=== PATIENT | male | born 1935 | race Caucasian/White ===

== ENCOUNTER → 2017-03-29 | Outpatient (CLI) | payer OTHER | LOC: BHLMT 10:30 | PROVIDERS: ATTEND Internal Medicine Interventional Cardiology | DX: I48.2 Chronic atrial fibrillation (principal); I25.10 Atherosclerotic heart disease of native coronary artery without angina pectoris; I10 Essential (primary) hypertension; I38 Endocarditis, valve unspecified; I50.32 Chronic diastolic (congestive) heart failure; R60.9 Edema, unspecified | CPT/HCPCS: 93005-PO ==

== ENCOUNTER → 2017-09-26 | Outpatient (CLI) | payer OTHER | LOC: BHFA 13:30 | PROVIDERS: ATTEND Internal Medicine Interventional Cardiology | DX: R00.1 Bradycardia, unspecified (principal) ==

== ENCOUNTER 2017-12-14 10:46 | Inpatient (IN) | payer OTHER ==
[~2017-12-14 10:46] MED LIST: ACETAMINOPHEN 325 MG TAB PO PRN; ONDANSETRON 4 MG/2 ML VIAL IVP PRN; ONDANSETRON DISINTEGRATING 4 MG TAB PO PRN
[2017-12-14 11:29] LABS: PLATELET COUNT 216 10^3/uL (150-400)
[2017-12-14] MEDS ORDERED: ENOXAPARIN 80 MG/0.8 ML SYR SC SCH (12:45)
[2017-12-14 13:12] LABS: INR 1.2 (0.83-1.16); PROTIME(PATIENT) 15.4 SEC (12.0-15.0)
--- NOTE | 2017-12-14 13:27 | GCON ---
[f rep st] CONSULTATION CARDIOLOGY CONSULTATION DATE OF CONSULTATION: 12/14/2017 HISTORY OF PRESENT ILLNESS: The patient is an 82-year-old man with a history of permanent atrial fib rillation, coronary artery disease, status post bypass surgery and subsequent PCIs, who has also had valvular heart disease with mechanical aortic valve replacement, under the care of Dr. Paramjit Medina. He has acute on chronic diastolic heart failure related to his valvular heart disease and LV diastol ic dysfunction. The patient has developed enlarged lymph nodes in the perihilar region and underwent mediastinoscopy under the care of Dr. Paramjit Medina at [facility]. There was a lymph node of inte rest, which could not be assessed during the procedure. The patient's postoperative course was compl icated by fluid overload in his lower extremities, as well as a blister of his right anterior manning, w hich is subsequently ruptured. Two of his dogs ran into his anterior manning, and that was associated w ith development of a hematoma just above that spot of skin breakdown. During his Lovenox bridge, whi ch was performed around the time of his mediastinoscopy, he developed significant epistaxis, which re quired a Rhino Rocket placement, and he spent over a week in the hospital around that time. Since th e procedure, he has been hoarse and had difficulty with his speech, specifically not in regard to his ability to form or think of words, but because of mechanical problems with his vocal cords. Yesterday, he underwent a bronchoscopy-guided needle biopsy of the lymph node of interest, as well as of the lung, and the family was verbally told that this was most likely a stage IIIA lung cancer. Harris judd also underwent thoracentesis, with removal of 900 cc of edna blood from the left hemithorax, which Dr. Medina felt was related to the mediastinoscopy and subsequent bleeding. Because he was not admi tted to [facility], it was recommended he be admitted here for further evaluation and treatment. PAST MEDICAL HISTORY: Significant for: 1. Asthma. 2. Permanent atrial fibrillation. 3. Coronary artery disease with 3-vessel bypass and subsequent PCI of the circumflex and RCA. 4. Mechanical aortic valve. 5. Acute on chronic diastolic congestive heart failure, [place] heart Association class 4 at this p oint. 6. Diabetes mellitus. 7. Hypertension. 8. Sleep apnea. 9. Previously mentioned valvular heart disease. PAST SURGICAL HISTORY: Significant for coronary artery bypass grafting with RAMSEY to the LAD, vein gr aft to the OM, and saphenous vein graft to the RCA in [place]. He has had subsequent catheterizatio n showing patent RAMSEY and both vein grafts occluded, and therefore, the interventions to the right an d circumflex under the care of Dr. Shaikh. He has a [address] [facility] aortic valve placed in the aort ic position, 07/28/2009, under the care of Dr. Medina. MEDICATIONS: His present medications include aspirin 81 mg daily, Lasix 80 mg daily, Exforge 5/160, PreserVision, super vitamin B daily, vitamin D 1 tablet daily, iron 1000 mg t.i.d., prednisone 5 mg p .o. b.i.d., Zytiga 1000 mg each evening, antacid 20 mg daily, Coumadin 5 mg each afternoon, Tekturna (which has been held) at a dose of 300 mg, Tradjenta 5 mg daily, simvastatin 20 mg daily, tamsulosin 0.4 mg daily, Uloric 40 mg daily. ALLERGIES: He is known to have an allergy to clonidine. SOCIAL HISTORY: The patient does not smoke, abuse alcohol or illicit drugs. He is retired and lives with his . His and son are present at the time of his evaluation in the room. This was a direct admission. PHYSICAL EXAMINATION: GENERAL: He appears acutely and chronically ill. VITAL SIGNS: His blood pre ssure is 109/54, heart rate 66, respirations 16 and unlabored. Oxygen saturation is 90% on room air. NECK: Reveals no JVD. HEART: Reveals normal S1, S2, with crisp mechanical click consistent with a [facility] aortic valve. He does have an irregularly irregular rhythm consistent with atrial fibrill ation. LUNGS: Reveal bilateral expiratory wheeze, worse on the left than the right. There is good air movement in the right and left lungs from the apex all the way to the base bilaterally. ABDOMEN: Benign, with positive bowel sounds. It is nondistended and nontender. EXTREMITIES: Reveal 2 to 3 + pitting edema bilaterally. There is a fresh bandage on the right lower extremity over the anterior aspect of the manning. I was able to look at pictures of the wound from only 2 days ago, revealing red ness, but no evidence of infection at that time. IMPRESSION/PLAN: 1. Acute on chronic diastolic heart failure in a patient with mechanical aortic valve, who has been off his blood thinners over the course of the last 24 hours. I think the patient should be resumed o n Lovenox at 0.8 mg/kg, which will be roughly 80 mg subcutaneously b.i.d. I would like to resume his Coumadin at 5 mg daily. He will need daily PT and INRs and continue his Lovenox unless bleeding com plications in the nose or recurrence of bleeding within the lung develop. The patient is likely some what fluid overloaded following the mediastinoscopy and all of his medical complications following th pari procedures. I would like to initiate a Lasix drip at 10 mg an hour if his chemistries allow for that to occur. He has had a history of recent renal insufficiency that may preclude the use of high- dose Lasix at present. The patient will likely require a catheter to help him deal with fluid shifts related to diuresis. 2. Suspected cancer of the lung, stage IIIA. The tissue report is not back from [facility], but will need to be followed. I am not sure where the patient's ultimate treatment for this problem will commence. He does have a history of remote prostate cancer. 3. Hypertension, well controlled on the present regimen. 4. Diabetes mellitus, to be followed per the hospitalist. I spent approximately an hour with the patient and his family. Over half the time was spent in coord ination of care and understanding the patient's past medical history in detail. I did discuss his ca se in detail with Dr. Alanis of the hospitalist service, and also discussed this case with the [facility] staff as well. We will continue to follow along with the hospitalist service during the patient's hospitalization. Copy requested to: PRIMARY CARE PHYSICIAN /[id number]/MODL
[2017-12-14] MEDS ORDERED: HEPARIN 5,000 UNIT/0.5 ML INJ SC SCH (14:00)
[2017-12-14] MEDS ORDERED: D50W 25 GM/50 ML SYR IVP PRN (14:55)
[2017-12-14] MEDS ORDERED: ENOXAPARIN 100 MG/ML SYR SC SCH (15:00)
[2017-12-14] MEDS: FERROUS SULFATE 325 MG TAB PO SCH ×2 (15:58→20:38)
[2017-12-14] MEDS: LINAGLIPTIN 5 MG PO SCH (17:19)
[2017-12-14] MEDS: Febuxostat [Uloric] 40 MG PO SCH (17:19)
--- NOTE | 2017-12-14 17:40 | WOCRNPDOC ---
ALEX Advanced Assessment Note - Skin Integrity Problem, Advanced Assess Right Lower Leg Dressing Type: Alginate, Kerlix Dressing Description: Intact Exudate Amount: Scant Exudate Color: Reddish/Yellow Exudate Characteristic(s): Dried Integumentary Issue Intervention: Dressing Changed, Hydrogel Applied Laverne Wound Tissue: Swollen (intact hematoma proximally;see note), Hemosiderin Staining, Venous Dermatitis Laverne Wound Swelling: None Wound Bed Color: Red Wound Bed Constitution: De-roofed Sanguineous blister Site Measurement - Head-to-Toe Length X Width X Depth (cm): 6cmx7.2cmx0.1cm Skin Integrity Problem Comment: De-roofed, dried blister noted to anterior RLE. Per patient, he is not certain about how this injury occurred. He said that he noticed it after his previous hospitalization last month, and that initially it was "a blood blister." Since that time the blister has de-roofed, and is now flat w/ no exudate. His home decorator applied an alginate dressing because it was draining. Now the overlying epithelium is beginning to re-attach in places, and there is some partial-thickness tissue loss in the distal aspect of the wound bed. No necrosis or swelling observed. Periwound skin appearance consistent w/ venous insufficiency, but his appears mild as there is very little edema in this extremity. Of note is a 2.5cmx2.5cm hematoma-like bump just proximal to this wound, which patient says was caused by his dogs jumping up on him. He says it has been there for "about a month," and that it isn't painful or tender. The site is mildly fluctuant, with no erythema periwound. I marked around this area w/ a permanent marker to establish where the margins are today. Dr. Alanis present during assessment, and agrees that the site does not appear infected or acute. Will continue to monitor while patient is here.
[2017-12-14] MEDS: predniSONE 5 MG TAB PO SCH (17:44)
[2017-12-14] MEDS: TAMSULOSIN HCL 0.4 MG CAP PO SCH (17:44)
[2017-12-14] MEDS: ATORVASTATIN CALCIUM 10 MG TAB PO SCH (17:44)
[2017-12-14] MEDS: FAMOTIDINE 20 MG TAB PO SCH (17:44)
[2017-12-14] MEDS: WARFARIN SODIUM 5 MG TAB PO SCH (17:45)
[2017-12-14] MEDS: INSULIN REGULAR HUMAN 100 UNIT/ML UNIT SC SCH ×2 (17:45→22:04)
[2017-12-14] MEDS ORDERED: NON-FORMULARY NEW DRUG (Simvastatin [Zocor] 20 MG) PO SCH (18:00)
[2017-12-14] MEDS ORDERED: NON-FORMULARY NEW DRUG (Linagliptin [Tradjenta] 5 MG) PO SCH (18:00)
[2017-12-14] MEDS ORDERED: NON-FORMULARY NEW DRUG (Febuxostat [Uloric] 40 MG) PO SCH (18:00)
--- NOTE | 2017-12-14 18:07 | PDGENHP ---
History and Physical - Chief Complaint Acute lower extremity edema - History of Present Illness Primary guest advisor: Dr. Robinson Shaikh Primary cardiothoracic surgeon: Dr. Marcial HPI: 82-year-old male presents with acute edema located in the bilateral lower extremities with associated shortness of breath, hoarseness. The patient reports that his lower extremity edema onset was after his discharge from his most recent hospitalization, 11/24/2017, and duration has been persistent thereafter. He reports that the shortness of breath has also been involving during that time, and it was significantly alleviated by a thoracentesis which was performed on the day prior to this presentation. The patient reports the thoracentesis was particularly bloody, and removed 900 cc of fluid. He also received pulmonary nodule biopsy at that time, and was told that the preliminary path demonstrated a stage IIIA malignancy. He has otherwise been experiencing this degree of hoarseness since his previous hospitalization and has neither improved nor worsened. He has been taking all of his home medications which include oral Lasix, but has been holding Coumadin prior to his most recent thoracentesis and bronchoscopy with biopsy. Given the patient' s evolution of lower extremity edema and shortness of breath, the decision was made to directly admit him to [facility] for active diuresis. Patient also reports recent onset of 2 wounds on his right anterior manning, 1 of which is raised and nontender, the other of which was originally a blister which expanded to a diameter of approximately 15-20 cm. He reports that the wounds are not painful, but they were provoked by trauma from his dogs. History Information - Allergies/Home Medication List Allergies/Adverse Reactions: clonidine Allergy (Verified 12/14/17 12:03) "I WANT TO KILL MYSELF" Home Medications: Abiraterone Acetate [Zytiga] 1,000 mg PO HS 12/14/17 [Last Taken 12/13/17] Acetaminophen [Tylenol 325mg (*)] 325 mg PO DAILY PRN 12/14/17 [Last Taken Unknown] Aspirin [Aspirin 81mg (*)] 81 mg PO DAILY 12/14/17 [Last Taken 12/14/17] C/E/Zn/Cu/OM3/DHA/EPA/LUT/ZEAX [Preservision Areds 2 Softgel] 1 each PO DAILY [Last Taken 12/14/17] Cholecalciferol Vit D3 [Vitamin D3 (*)] 1,000 units PO DAILY 12/14/17 [Last Taken 12/14/17] Enoxaparin [Lovenox 100 MG (*)] 100 mg SQ BID 12/14/17 [Last Taken 12/11/17] Famotidine [Pepcid 20 MG (*)] 20 mg PO DAILY18 12/14/17 [Last Taken 12/13/17] Febuxostat [Uloric] 40 mg PO DAILY18 12/14/17 [Last Taken 12/13/17] Ferrous Sulfate [Ferrous Sulf 325 MG (*)] 325 mg PO TID 12/14/17 [Last Taken ] Furosemide [Lasix 80 MG (*)] 80 mg PO DAILY 12/14/17 [Last Taken 12/14/17] Linagliptin [Tradjenta] 5 mg PO DAILY18 12/14/17 [Last Taken 12/13/17] Potassium Cl [Klor-Con 20 meq (*)] 20 meq PO DAILY 12/14/17 [Last Taken 12/14/17 ] Simvastatin [Zocor] 20 mg PO DAILY18 12/14/17 [Last Taken 12/13/17] Tamsulosin HCl [Flomax 0.4 MG (*)] 0.4 mg PO DAILY18 12/14/17 [Last Taken ] Vitamin B Complex [Vitamin B Complex (OTC)] 1 each PO DAILY 12/14/17 [Last Taken 12/14/17] Warfarin Sodium [Coumadin 5MG (*)] 5 mg PO DAILY18 12/14/17 [Last Taken 12/10/17 ] amLODIPine/VALSARTAN [Exforge 5-160 mg Tablet] 1 each PO DAILY 12/14/17 [Last Taken 12/14/17] predniSONE 5 mg PO BIDMEAL 12/14/17 [Last Taken 12/14/17] I have personally reviewed and updated: family history, medical history, social history, surgical history - Past Medical History atrial fibrillation (Permanent), coronary artery disease (Status post CABG and most recent PCI is to the left circumflex and RCA) Additional medical history: Left bundle branch block. Chronic kidney disease stage 3 with baseline creatinine 1.4-1.6. Chronic diastolic congestive heart failure with [place] heart Association class 4 symptoms. Pulmonary nodules with reported stage IIIA malignancy. Prostate cancer. Obstructive sleep apnea. Hypertension. History of significant epistaxis requiring rhino rockets an 8 day hospitalization, discharged on 11/24/2017 from [facility] - Surgical History Additional surgical history: Recent mediastinoscopy, bronchoscopy and thoracentesis on 12/13, mechanical aortic valve replacement by [facility] in 2008 - Family History Additional family history: No recent sick family contacts - Social History Smoking Status: Former smoker Alcohol Use: None Drug Use: None Additional social history: Independent in ADLs, lives with Review of Systems Review of Systems: ROS: 10pt was reviewed & negative except for what was stated in HPI & below EENMT: Reports: other (Hoarseness) Cardiac: Reports: edema Respiratory: Reports: shortness of breath Gastrointestinal: Reports: abdominal distention Physical Exam Physical Exam: Temp Pulse Resp BP Pulse Ox 36.8 C 60 18 105/48 L 93 12/14/17 16:15 12/14/17 16:15 12/14/17 16:15 12/14/17 16:15 12/14/17 16:15 Constitutional: no apparent distress, not in pain, chronically ill appearing, No uncomfortable Eyes: PERRL, anicteric sclera, EOMI Ears, Nose, Mouth, Throat: moist mucous membranes, hearing normal, ears appear normal, no oral mucosal ulcers Cardiovascular: systolic murmur (1/6 systolic murmur at the sternum with closing snap), irregularly irregular, JVD, edema (1+ bilateral lower extremities ), No tachycardia Respiratory: inspiratory crackles (Bilateral bases), No reduced air movement, No expiratory wheeze, No bronchial breath sounds, No respiratory distress Gastrointestinal: normoactive bowel sounds, distension (Moderate), No no palpable masses, No tenderness, No guarding Skin: other (Fluctuant but nontender area on the right mid manning without surrounding erythema, some ecchymoses, healing area of blister inferior to that approximately 15-20 cm in diameter) Neurologic: AAOx3, sensation intact bilaterally, No weakness Psychiatric: interacting appropriately, not anxious, not encephalopathic, thought process linear Lab Data & Imaging Review 12/14/17 11:10 12/14/17 11:10 WBC 11.37 10^3/uL (3.80-9.50) H 12/14/17 11:10 RBC 2.84 10^6/uL (4.40-6.38) L 12/14/17 11:10 Hgb 8.7 g/dL (13.7-17.5) L 12/14/17 11:10 Hct 26.5 % (40.0-51.0) L 12/14/17 11:10 MCV 93.3 fL (81.5-99.8) 12/14/17 11:10 MCH 30.6 pg (27.9-34.1) 12/14/17 11:10 MCHC 32.8 g/dL (32.4-36.7) 12/14/17 11:10 RDW 17.1 % (11.5-15.2) H 12/14/17 11:10 Plt Count 216 10^3/uL (150-400) 12/14/17 11:10 MPV 9.9 fL (8.7-11.7) 12/14/17 11:10 Neut % (Auto) 88.0 % (39.3-74.2) H 12/14/17 11:10 Lymph % (Auto) 4.9 % (15.0-45.0) L 12/14/17 11:10 Door % (Auto) 5.5 % (4.5-13.0) 12/14/17 11:10 Eos % (Auto) 0.0 % (0.6-7.6) L 12/14/17 11:10 Baso % (Auto) 0.1 % (0.3-1.7) L 12/14/17 11:10 Nucleat RBC Rel Count 0.0 % (0.0-0.2) 12/14/17 11:10 Absolute Neuts (auto) 10.01 10^3/uL (1.70-6.50) H 12/14/17 11:10 Absolute Lymphs (auto) 0.56 10^3/uL (1.00-3.00) L 12/14/17 11:10 Absolute Monos (auto) 0.63 10^3/uL (0.30-0.80) 12/14/17 11:10 Absolute Eos (auto) 0.00 10^3/uL (0.03-0.40) L 12/14/17 11:10 Absolute Basos (auto) 0.01 10^3/uL (0.02-0.10) L 12/14/17 11:10 Absolute Nucleated RBC 0.00 10^3/uL (0-0.01) 12/14/17 11:10 Immature Gran % 1.5 % (0.0-1.1) H 12/14/17 11:10 Immature Gran # 0.17 10^3/uL (0.00-0.10) H 12/14/17 11:10 RBC/WBC/PLT Morphology TNP 12/14/17 11:10 Platelet Estimate TNP 12/14/17 11:10 PT 15.4 SEC (12.0-15.0) H 12/14/17 12:55 INR 1.20 (0.83-1.16) H 12/14/17 12:55 Sodium 134 mEq/L (135-145) L 12/14/17 11:10 Potassium 3.8 mEq/L (3.3-5.0) 12/14/17 11:10 Chloride 94 mEq/L (97-110) L 12/14/17 11:10 Carbon Dioxide 29 mEq/l (22-31) 12/14/17 11:10 Anion Gap 11 mEq/L (8-16) 12/14/17 11:10 BUN 88 mg/dL (7-23) H 12/14/17 11:10 Creatinine 2.1 mg/dL (0.7-1.3) H 12/14/17 11:10 Estimated GFR 31 12/14/17 11:10 Glucose 271 mg/dL (70-100) H 12/14/17 11:10 POC Glucose 223 mg/dL (70-100) H 12/14/17 17:36 Calcium 8.6 mg/dL (8.5-10.4) 12/14/17 11:10 Total Bilirubin 0.8 mg/dL (0.1-1.4) 12/14/17 11:10 AST 25 IU/L (17-59) 12/14/17 11:10 ALT 30 IU/L (21-72) 12/14/17 11:10 Alkaline Phosphatase 77 IU/L (38-126) 12/14/17 11:10 Total Protein 5.9 g/dL (6.3-8.2) L 12/14/17 11:10 Albumin 3.0 g/dL (3.5-5.0) L 12/14/17 11:10 Assessment & Plan Assessment: 82-year-old male presents with acute on chronic diastolic congestive heart failure exacerbation complicated by acute on chronic kidney disease Plan: 1. Acute on chronic diastolic congestive heart failure exacerbation. New problem this provider, further workup indicated. Evidenced by bilateral lower extremity edema, inspiratory crackles, positive JVD, abdominal distension, recent fluid received prior to bronchoscopy and thoracentesis on day prior, likely contributing to the current presentation -discussed with Dr. Buck Trujillo, he reports the plan is for IV Lasix drip -monitor strict I&Os, daily weights -monitor creatinine level and lytes closely -will check chest x-ray to get a baseline understanding of pulmonary fluid overload as well as BNP 2. Acute kidney injury on chronic kidney disease stage 3. Baseline creatinine is 1.4-1.6, currently 2.1 with elevated BUN, most likely secondary to worsening CHF and worsening cardiac output with resultant worsening renal perfusion -will monitor renal function closely as we actively diurese 3. Coronary artery disease. Chronic, reviewed outside records including 2017 nuclear medicine stress test demonstrating no inducible ischemia patient with atrial fibrillation during the test and PVCs, as read by Mimi Dean -continue home medications, currently no evidence of angina 4. Permanent atrial fibrillation. Continue home medications 5. Mechanical aortic valve. [facility], requires bridging therapy as his INR is subtherapeutic due to holding medication prior to thoracentesis -given his significantly elevated creatinine level, we will dose him Lovenox 100 mg once daily, re-initiated Coumadin today, monitor daily INR 6. Hyponatremia. Acute, secondary to renal hypoperfusion in the setting of above, continue to monitor while diuresing 7. 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 Pulmonary, will order outside records from [facility] tomorrow to obtain most recent path result 8. Anemia. Most likely secondary to chronic kidney disease, monitor closely given patient's report of bloody thoracentesis and pleural effusion on day prior Diet. Cardiac Prophylaxis. Therapeutic Lovenox Code. Do not resuscitate per patient Disposition. Anticipated discharge uncertain this time, anticipated length stay is greater than 48 hr for reasonable medical necessity including acute on chronic diastolic congestive heart failure exacerbation in the setting of high risk comorbid acute kidney injury on chronic kidney disease stage 3.
[2017-12-14] MEDS: FUROSEMIDE 40 MG/4 ML VIAL IVP SCH (20:34)
[2017-12-14] MEDS: Abiraterone Acetate [Zytiga] PO SCH (20:35)
[2017-12-14] MEDS ORDERED: *PHM DO NOT USE-FUROSEMIDE 1MG/ML IV PED/NEWBORN SYR IV SCH (21:00)
[2017-12-14] MEDS ORDERED: NON-FORMULARY NEW DRUG (Abiraterone Acetate [Zytiga] 1,000 MG) PO SCH (21:00)
[2017-12-15 04:21] LABS: INR 1.22 (0.83-1.16); PROTIME(PATIENT) 15.6 SEC (12.0-15.0)
[2017-12-15] MEDS: INSULIN REGULAR HUMAN 100 UNIT/ML UNIT SC SCH ×4 (07:02→21:24)
[2017-12-15] MEDS: VITAMIN B COMPLEX 1 EA CAP/TAB PO SCH (08:14)
[2017-12-15] MEDS: PRESERVISION AREDS2 FORMULA EYE VIT 1 EACH PO SCH (08:15)
[2017-12-15] MEDS: ASPIRIN 81 MG CHEWABLE TAB PO SCH (08:15)
[2017-12-15] MEDS: predniSONE 5 MG TAB PO SCH ×2 (08:15→17:57)
[2017-12-15] MEDS: FUROSEMIDE 40 MG/4 ML VIAL IVP SCH ×2 (08:15→21:14)
[2017-12-15] MEDS: FERROUS SULFATE 325 MG TAB PO SCH ×3 (08:15→21:09)
[2017-12-15] MEDS: CHOLECALCIFEROL VIT D3 1,000 UNITS TAB PO SCH (08:15)
[2017-12-15] MEDS: POTASSIUM CL 20 MEQ TAB PO SCH (08:16)
[2017-12-15] MEDS ORDERED: VALSARTAN PO SCH (09:00)
[2017-12-15] MEDS ORDERED: VALSARTAN 160 MG TAB PO SCH (09:00)
[2017-12-15] MEDS ORDERED: AMLODIPINE PO SCH (09:00)
[2017-12-15] MEDS ORDERED: amLODIPine BESYLATE 5 MG TAB PO SCH (09:00)
[2017-12-15] MEDS: amLODIPine BESYLATE 5 MG TAB PO SCH (09:00)
--- NOTE | 2017-12-15 09:56 | PDMN ---
Medical Necessity Medical necessity: est los>2mn for acute on chronic diastolic CHF exacerbation, w/bilat LE edema, crackles, JVD+, and abd distention, KEYLA, and hyponatremia; admit for IV Lasix, monitor labs and I&O, comorbid CKD, CAD, AVR on AC, stage IIIA malignancy, and anemia; per order and H&P 12/14/17
[2017-12-15] MEDS: ENOXAPARIN 100 MG/ML SYR SC SCH ×2 (12:51→21:14)
--- NOTE | 2017-12-15 13:27 | ASMTCASEMG ---
Living Arrangements What is your living Answers: With Spouse arrangement? Who do you live with? Type Of Residence What kind of residence do Answers: House you live in? Discharge Plan Comments Coordination Status Comments Notes: Pt is a 82 y/o man admitted for chronic diastolic CHF. OT is recommending HC vs SNF. PT recommendations are pending. Wound care is involved. Needs are TBD at this time. CM to follow. Plan: TBD Date Signed: 12/15/2017 01:26 PM Electronically Signed By:MASSIEL England
--- NOTE | 2017-12-15 16:22 | PDCARPN ---
Cardiology Progress Note Assessment/Plan: Plan: I reevaluated the patient. He is feeling well. The wound specialists assessed his lower extremity wounds. We are waiting to hear the biopsy results. He is diuresing well with a stable creatinine. I would recommend we stay off the ARB and Tekturna. The patient is stable. 12/15/17 16:18 Subjective: The patient is feeling the same. He appears well and is stable. Reviewed/Discussed With: multidisciplinary team Objective: Vital Signs (8 Hrs) Temp Pulse Resp BP Pulse Ox 12/15/17 12:00 36.5 C 64 8 L 111/56 L 91 L 12/15/17 08:54 87 L Intake/Output (24 Hrs) 12/14/17 12/15/17 12/16/17 05:59 05:59 05:59 Intake Total 550 240 Output Total 3100 Balance -2550 240 Intake: Oral (ml) 550 240 Output: Urine (ml) 3100 Catheter 2800 Urinal 300 Other: Weight 98.7 kg Intake Quantity Yes Sufficient Number of Voids Urinal 2 Number of Stools Catheter 1 Urinal 1 Result Diagrams: 12/14/17 11:10 12/15/17 03:16 - Physical Exam Constitutional: WDWN Eyes: PERRL Ears, Nose, Mouth, Throat: moist mucous membranes Cardiovascular: regular rate and rhythm Respiratory: clear to auscultate bilat, no crackles, no wheezes Gastrointestinal: normoactive bowel sounds ICD10 Worksheet Patient Problems: Problems Problem Status Onset CHF (congestive heart failure) Acute - ICD10 Problem Qualifiers (1) CHF (congestive heart failure)
--- NOTE | 2017-12-15 16:35 | HOSPPROG ---
Hospitalist Progress Note Assessment/Plan: Assessment: 82-year-old male presents with acute on chronic diastolic congestive heart failure exacerbation complicated by acute on chronic kidney disease Plan: 1. Acute on chronic diastolic congestive heart failure exacerbation. Evidenced by bilateral lower extremity edema, inspiratory crackles, positive JVD, abdominal distension, recent fluid received prior to bronchoscopy and thoracentesis on day prior to admit, likely contributing to the current presentation -CXR w/o recurrent effusion (personally interpreted), BNP 4000 -net neg 2.5L o/n -monitor strict I&Os, daily weights -cont lasix 40mg IV bid, craig for strict I/O -monitor creatinine level and lytes closely 2. Acute kidney injury on chronic kidney disease stage 3. Baseline creatinine is 1.4-1.6, currently 2.0, most likely secondary to worsening CHF and worsening cardiac output with resultant worsening renal perfusion -will monitor renal function closely as we actively diurese -Cr improving w/ diuresis 3. Coronary artery disease. Chronic, continue home medications, currently no evidence of angina 4. Permanent atrial fibrillation. Continue home medications 5. Mechanical aortic valve. [facility], requires bridging therapy as his INR is subtherapeutic due to holding medication prior to thoracentesis -cr clearance improving, adjusted lovenox to 100mg bid -cont coumadin 5mg daily, monitor INR 6. Hyponatremia. Acute, secondary to renal hypoperfusion in the setting of above, continue to monitor while diuresing 7. 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 Pulmonary, will order outside records from [facility] -order outside records (path) from [facility] 8. Anemia. Most likely secondary to chronic kidney disease, monitor closely given patient's report of bloody thoracentesis and pleural effusion on day prior 9. HTN. Chronic, reduce dosage of amlodipine to 2.5mg daily so we have more BP to work w/ diuresis 10. Pressure injury. POA, RLE 2/2 trauma from dogs, healing well, wound care consultation appreciated Diet. Cardiac Prophylaxis. Therapeutic Lovenox Code. Patient adjusted back to Full code Disposition. ADD uncertain, requiring ongoing IV diuresis. High-level medical complexity, high risk for worsening morbidity and/or mortality secondary to the issues as outlined above. Subjective: patient reports he has more energy today Objective: Vital Signs Temp Pulse Resp BP Pulse Ox 36.5 C 64 8 L 111/56 L 91 L 12/15/17 12:00 12/15/17 12:00 12/15/17 12:00 12/15/17 12:00 12/15/17 12:00 Laboratory Results 12/14/17 11:10 12/15/17 03:16 12/14/17 12/15/17 12/16/17 05:59 05:59 05:59 Intake Total 550 240 Output Total 3100 Balance -2550 240 PT 15.6 SEC (12.0-15.0) H 12/15/17 03:16 INR 1.22 (0.83-1.16) H 12/15/17 03:16 - Physical Exam Constitutional: no apparent distress, not in pain, chronically ill appearing, No uncomfortable Cardiovascular: systolic murmur (I/ at sternum, closing snap), irregularly irregular, JVD, edema (1+ bilat LE), No tachycardia Respiratory: inspiratory crackles (bilat bases), No reduced air movement, No expiratory wheeze, No bronchial breath sounds, No respiratory distress Gastrointestinal: normoactive bowel sounds, soft, non-tender abdomen, no palpable masses, distension (mild) Skin: other (RLE wound covered) Neurologic: AAOx3 Psychiatric: interacting appropriately, not anxious, not encephalopathic, thought process linear ICD10 Worksheet Patient Problems: Problems Problem Status Onset CHF (congestive heart failure) Acute
[2017-12-15] MEDS: WARFARIN SODIUM 5 MG TAB PO SCH (17:57)
[2017-12-15] MEDS: TAMSULOSIN HCL 0.4 MG CAP PO SCH (17:57)
[2017-12-15] MEDS: ATORVASTATIN CALCIUM 10 MG TAB PO SCH (17:57)
[2017-12-15] MEDS: FAMOTIDINE 20 MG TAB PO SCH (17:57)
[2017-12-15] MEDS: Febuxostat [Uloric] 40 MG PO SCH (17:58)
[2017-12-15] MEDS: LINAGLIPTIN 5 MG PO SCH (17:59)
[2017-12-15] MEDS ORDERED: LACTULOSE 20 GM/30 ML UDCUP PO PRN (18:03)
[2017-12-15] MEDS ORDERED: POLYETHYLENE GLYCOL 3350 17 GM PKT PO PRN (18:03)
[2017-12-15] MEDS ORDERED: BISACODYL 10 MG SUPP PR PRN (18:03)
[2017-12-15] MEDS: SENNOSIDES/DOCUSATE SODIUM TAB PO SCH ×2 (18:37→21:07)
[2017-12-15] MEDS ORDERED: ENOXAPARIN 100 MG/ML SYR SC SCH (21:00)
[2017-12-15] MEDS: Abiraterone Acetate [Zytiga] PO SCH (21:06)
[2017-12-16 04:26] LABS: INR 1.27 (0.83-1.16); PROTIME(PATIENT) 16.1 SEC (12.0-15.0)
[2017-12-16] MEDS: ENOXAPARIN 100 MG/ML SYR SC SCH (08:43)
[2017-12-16] MEDS: FUROSEMIDE 40 MG/4 ML VIAL IVP SCH (08:43)
[2017-12-16] MEDS: INSULIN REGULAR HUMAN 100 UNIT/ML UNIT SC SCH ×2 (09:47→14:05)
[2017-12-16] MEDS: VITAMIN B COMPLEX 1 EA CAP/TAB PO SCH (09:58)
[2017-12-16] MEDS: FERROUS SULFATE 325 MG TAB PO SCH ×2 (09:58→14:05)
[2017-12-16] MEDS: ASPIRIN 81 MG CHEWABLE TAB PO SCH (09:58)
[2017-12-16] MEDS: PRESERVISION AREDS2 FORMULA EYE VIT 1 EACH PO SCH (09:58)
[2017-12-16] MEDS: CHOLECALCIFEROL VIT D3 1,000 UNITS TAB PO SCH (09:59)
[2017-12-16] MEDS: predniSONE 5 MG TAB PO SCH (09:59)
[2017-12-16] MEDS: amLODIPine BESYLATE 5 MG TAB PO SCH ×2 (10:00→13:42)
[2017-12-16] MEDS: POTASSIUM CL 20 MEQ TAB PO SCH (10:00)
[2017-12-16 11:25] VITALS: BP 97/37
--- NOTE | 2017-12-16 12:33 | PDCARPN ---
Cardiology Progress Note Assessment/Plan: Assessment: 1. Acute on chronic diastolic chf 2. Chronic Afib 3. Hx of CAD sp CABG and multiple PCI 4. sp mechanical AVR 5. Hypotension Plan: -stable for discharge home with close cardiology follow up -Home with Lasix 80 mg AM, and 40 mg at 2 pm -Hold Exforge and Tekturna -Pt will monitor BP at home -Cardiology follow up next or Monday -Order BMP, BNP and Mg next prior to appointment 12/16/17 12:35 Subjective: Mr. Mccain is a pleasant 82 year old gentleman admitted from our office due to acute on chronic diastolic CHF. LE edema has improved significantly. He is negative 3L since admission. He feels back to his baseline and feel ready to go home. He remains in rate controlled afib. His BP remains low. He remains off of his Tekturna and Exforge. He denies sob, pnd, orthopena. Reviewed/Discussed With: hospitalist Time Spent with Patient: greater than 25 minutes Time Spent with Patient: Greater than 25 minutes spent on this patients care, greater than 50% of time spent counseling, educating, and coordinating care regarding the above mentioned plan. Objective: Vital Signs (8 Hrs) Temp Pulse Resp BP Pulse Ox 12/16/17 11:24 36.4 C 74 16 97/37 L 93 12/16/17 10:07 107/49 L 12/16/17 07:06 36.8 C 50 L 16 104/42 L 99 Intake/Output (24 Hrs) 12/15/17 12/16/17 12/17/17 05:59 05:59 05:59 Intake Total 550 1040 200 Output Total 3100 1400 300 Balance -2550 -360 -100 Intake: Oral (ml) 550 1040 200 Output: Urine (ml) 3100 1400 300 Catheter 2800 1000 300 Toilet 400 Urinal 300 Other: Weight 98.7 kg 100 kg Intake Quantity Yes Sufficient Number of Voids Toilet 1 Urinal 2 Number of Stools Catheter 1 1 Toilet 1 Urinal 1 Result Diagrams: 12/16/17 03:38 12/16/17 03:38 Telemetry: Afib, rate controlled. - Physical Exam Constitutional: WDWN Neurologic: AAOx3, CN II-XII grossly intact Psychiatric: cooperative, interactive, following commands ICD10 Worksheet Patient Problems: Problems Problem Status Onset CHF (congestive heart failure) Acute
--- NOTE | 2017-12-16 12:36 | PDIAF ---
- Diagnosis Diagnosis: diastolic heart failure Code Status: Full Code - Medication Management Discharge Medications: Medications to Continue on Transfer Abiraterone Acetate [Zytiga] 1,000 mg PO HS 12/14/17 [Last Taken 12/13/17] Acetaminophen [Tylenol 325mg (*)] 325 mg PO DAILY PRN 12/14/17 [Last Taken Unknown] Aspirin [Aspirin 81mg (*)] 81 mg PO DAILY 12/14/17 [Last Taken 12/14/17] C/E/Zn/Cu/OM3/DHA/EPA/LUT/ZEAX [Preservision Areds 2 Softgel] 1 each PO DAILY [Last Taken 12/14/17] Cholecalciferol Vit D3 [Vitamin D3 (*)] 1,000 units PO DAILY 12/14/17 [Last Taken 12/14/17] Enoxaparin [Lovenox 100 MG (*)] 100 mg SQ BID 12/14/17 [Last Taken 12/11/17] Famotidine [Pepcid 20 MG (*)] 20 mg PO DAILY18 12/14/17 [Last Taken 12/13/17] Febuxostat [ULORIC] 40 mg PO DAILY18 12/14/17 [Last Taken 12/13/17] Ferrous Sulfate [Ferrous Sulf 325 MG (*)] 325 mg PO TID 12/14/17 [Last Taken ] Linagliptin [Tradjenta] 5 mg PO DAILY18 12/14/17 [Last Taken 12/13/17] Potassium Cl [Klor-Con 20 meq (*)] 20 meq PO DAILY 12/14/17 [Last Taken 12/14/17 ] Simvastatin [Zocor] 20 mg PO DAILY18 12/14/17 [Last Taken 12/13/17] Tamsulosin HCl [Flomax 0.4 MG (*)] 0.4 mg PO DAILY18 12/14/17 [Last Taken ] Vitamin B Complex [Vitamin B Complex (OTC)] 1 each PO DAILY 12/14/17 [Last Taken 12/14/17] Warfarin Sodium [Coumadin 5MG (*)] 5 mg PO DAILY18 12/14/17 [Last Taken 12/10/17 ] predniSONE 5 mg PO BIDMEAL 12/14/17 [Last Taken 12/14/17] Furosemide [Lasix 80 MG (*)] 40 mg PO DAILY14 #30 tab 12/16/17 [Last Taken Unknown] Furosemide [Lasix 80 MG (*)] 80 mg PO DAILY06 #30 tab 12/16/17 [Last Taken Unknown] Discharge Medications: Refer to the Discharge Home Medication list for PRN reason. - Orders Services needed: Home Care, Registered Nurse, Physical Therapy Home Care Face to Face: I certify that this patient was under my care and that I had the required [id number] encounter meeting the encounter requirements on the discharge day. My findings support the fact that the patient is homebound as defined in Home Care Face to Face Continued: CMS Chapter 7 Medicare Benefits Manual 30.1.1 , The condition of the patient is such that there exists a normal inability to leave home and consequently, leaving home would require a considerable and taxing effort. Additional Instructions: please see cardiology next week for a lab check of your kidney function and INR for discontinuation of your lovenox bridge Dressing change orders for R lower leg: to be changed by every 5 days and as needed until healed. 1) cleanse w/ NS and gauze. 2) apply hydrogel wound gel to wound. 3) cover w/ piece of Adaptic Touch contact layer. 4) cover w/ Mepilex white foam 4x4. 5) secure w/ Kerlix and stretch net. NANCY Schilling - Follow Up Care Current Providers and Referrals: Baltazar Lofton [Primary Care Provider] - Robinson Shaikh MD [Medical Doctor] -
[2017-12-16] MEDS: SENNOSIDES/DOCUSATE SODIUM TAB PO SCH ×2 (14:04→14:06)
--- NOTE | 2017-12-16 15:11 | ASMTLACE ---
LACE Length of stay for Answers: 2 days current admission Acuity / Level of Answers: Yes Care: Did the patient have an inpatient admission? Comorbidities - select Answers: Congestive heart failure all that apply Coronary Artery Disease Other Notes: CKD stage 3 ; HTN # of Emergency department Answers: 1-2 visits in the last 6 months Score: 11 Date Signed: 12/16/2017 03:10 PM Electronically Signed By:Yael Jameson RN
--- NOTE | 2017-12-16 17:16 | ASDISCHSUM ---
Discharge Information Plan Status:Home with Home Health Medically Cleared to Leave:12/16/2017 Discharge Date:12/16/2017 03:49 PM CM D/C Disposition:Home Health Service ADT D/C Disposition:Home, Routine, Self-Care Projected Discharge Date:12/16/2017 03:00 PM Transportation at D/C:Family Discharge Delay Reason: Follow-Up Date:12/16/2017 03:00 PM Discharge Slot:2 - 12:01 pm - 18:00 pm Final Diagnosis:Lower extremity edema, afib, CAD s/p CABG Placement Information Referral Type:*Home Health Care Services Referral ID:[id number] Provider Name:[facility] Address 1:[address] Phone Number: Address 2: Fax Number: City:[place] Selection Factors:Patient/Family Choice State:[place] Patient Contact Information Contact Name:ERICADEEP Relationship: Address:[address] City:[place] Alternate Phone: State/Zip Code:[place] [address] Email: Financial Information Financial Class:Medicare Primary Plan Desc:MEDICARE INPATIENT Primary Plan Number:[id number] [facility] Secondary Plan Number:[id number] Assessment Information LACE LACE Length of stay for Answers: 2 days current admission Acuity / Level of Answers: Yes Care: Did the patient have an inpatient admission? Comorbidities - select Answers: Congestive heart failure all that apply Coronary Artery Disease Other Notes: CKD stage 3 ; HTN # of Emergency department Answers: 1-2 visits in the last 6 months Score: 11 Date Signed: 12/16/2017 03:10 PM Electronically Signed By:Yael Jameson RN [facility] Initial CM Assessment Living Arrangements What is your living Answers: With Spouse arrangement? Who do you live with? Type Of Residence What kind of residence do Answers: House you live in? Discharge Plan Comments Coordination Status Comments Notes: Pt is a 82 y/o man admitted for chronic diastolic CHF. OT is recommending HC vs SNF. PT recommendations are pending. Wound care is involved. Needs are TBD at this time. CM to follow. Plan: TBD Date Signed: 12/15/2017 01:26 PM Electronically Signed By:MASSIEL England Case Management Discharge Plan Note Case Management Discharge Discharge Order Complete? Answers: Yes Patient to Obtain Answers: Independently Medications Transportation Arranged Answers: Family/Friends Transport will Pick (Date 12/16/2017 12:00 AM & Time) EMTALA Complete Answers: No Notes: N/A Case Management Transport Answers: No Notes: N/A Form Complete Faxed Final Orders Answers: Yes Notes: Sent via iiko Agency/Facility Transfer Answers: Yes Notes: Sent via iiko Report Printed & Faxed to Receiving Agency Family Notified Answers: Yes Notes: , Nova at [facility] Discharge Comments Notes: Reviewed chart, spoke with Dr. Caputo and Monserrat RN regarding discharge plan of care, pt's progress. Per Dr. Caputo, pt to discharge home with home health and family support today. Spoke with pt and his , Nova. Per pt, he is currently open with [facility] (RN/PT/OT) services. Call placed to Lisa at [facility] . Per Lisa, able to resume care starting 12/17/17 or 12/18/17. Discharge orders and paperwork sent via iiko, confirmed receipt with Lisa. Update provided to pt and family. IM signed, placed in chart; copy provided to pt. Pt to follow up as directed. CM available for any further issues or concerns. Discharge Plan: Home with family support and [facility] (RN/PT/OT) Date Signed: 12/16/2017 03:19 PM Electronically Signed By:Yael Jameson RN Intervention Information Intervention Type:*IM-Signed Date of Service:12/16/2017 03:20 PM Patient Type:Inpatient Staff Member:BLAZE Jameson Taylor Hours: Discipline: Severity: Comment:
--- NOTE | 2017-12-17 02:25 | GDS ---
[f rep st] DISCHARGE SUMMARY DISCHARGE DIAGNOSES: Include: 1. Acute on chronic diastolic heart failure. 2. Acute kidney injury on chronic kidney disease. 3. Coronary artery disease. 4. Permanent atrial fibrillation. 5. Mechanical aortic valve on chronic anticoagulation. 6. Chronic anemia. 7. Hypertension. 8. Pressure injury followed by Wound Care. 9. Stage IIIA malignancy from pulmonary nodule biopsy. 10. Left bundle branch block. 11. History of prostate cancer. 12. Obstructive sleep apnea. HISTORY OF PRESENT ILLNESS: This is an 82-year-old male with complicated medical history, who presen ts to [facility] on 12/14/2017, with complaints of lower extremity edema. For details of the patient's presentation, please see the History and Physical dated 12/14/2017. CONSULTATIVE SERVICES: Cardiology. PROCEDURES: On 12/15/2017, patient had a PA and lateral chest x-ray which showed cardiomegaly. HOSPITAL COURSE BY ISSUE: 1. Acute on chronic diastolic heart failure. The patient was diuresed with IV Lasix with good respo nse. He will be transitioned in the outpatient setting to an increased dose of oral Lasix 80 mg in t he morning for his normal home dose with additional 40 mg in the afternoon. Follow in the outpatient setting with Cardiology next week for his first post disposition followup. 2. Mechanical valve replacement. Patient remains on chronic anticoagulation. Last INR check was 1. 27. He will remain on Lovenox bridging therapy at discharge. 3. Hypertension. The patient ran low blood pressures during this hospital stay. We have discontinu ed his home dosing of amlodipine 2.5. Again, he will follow in the outpatient setting with Cardiolog y, where likely they will introduce and up titrate carvedilol when his blood pressures allow. MEDICATIONS AT THE TIME OF DISPOSITION: Please reference the med rec printed on 12/16/2017. FOLLOWUP APPOINTMENTS: Include: 1. With Cardiology, Dr. Roth, in the next week. 2. This primary care provider, Dr. Lofton, for ongoing management of his medical comorbidities. I spent greater than 30 minutes in the planning and coordination of this discharge. /[id number]/MODL
== END 2017-12-16 15:49 | disposition home health service (06) | DRG 291 ==
LOC: PREOBSVTOIN 10:46 → F2W 10:49
PROVIDERS: ADMIT Internal Medicine Interventional Cardiology; ATTEND Internal Medicine Interventional Cardiology
DX: I13.0 Hypertensive heart and chronic kidney disease with heart failure and stage 1 through stage 4 chronic kidney disease, or unspecified chronic kidney disease (principal); I50.33 Acute on chronic diastolic (congestive) heart failure; N17.9 Acute kidney failure, unspecified; C34.90 Malignant neoplasm of unspecified part of unspecified bronchus or lung; E87.1 Hypo-osmolality and hyponatremia; N18.3 Chronic kidney disease, stage 3 (moderate); I48.2 Chronic atrial fibrillation; D63.1 Anemia in chronic kidney disease; I44.7 Left bundle-branch block, unspecified; G47.33 Obstructive sleep apnea (adult) (pediatric); I25.10 Atherosclerotic heart disease of native coronary artery without angina pectoris; Z85.46 Personal history of malignant neoplasm of prostate; Z95.1 Presence of aortocoronary bypass graft; Z79.01 Long term (current) use of anticoagulants; Z95.2 Presence of prosthetic heart valve; Z66 Do not resuscitate; E11.9 Type 2 diabetes mellitus without complications; L89.899 Pressure ulcer of other site, unspecified stage
CPT/HCPCS: 97161-GP; 97165-GO; 97535-GO; G8978-GP-CJ; G8979-GP-CI; G8987-GO-CI; G8988-GO-CI; J1650; J1815; J1940; J7512